=== PATIENT | male | born 1975 | race Caucasian/White ===

== ENCOUNTER 2016-11-15 22:19 | Emergency (ER) | payer BC, MEDICARE ==
[~2016-11-15 22:19] MED LIST: ATV1 PO; DIL2TAB PO; DURA75 TOP; HABIT21 TOP; NORCO1 TAB PO; PERCOCET 10/3251 TAB PO; PERCOCET 7.5/321 TAB PO; PR12.5 PO; ZOFRAN4 PO
[2016-11-16 01:30] LABS: PROTIME (NOT ORD) 13.4 SEC (12.0-14.5)
[2016-11-16 01:31] LABS: PARTIAL THROMBO TIME 31.2 SEC (22.5-37.2)
[2016-11-16 01:34] LABS: LACTATE 0.7 MMOL/L (0.3-2.4)
[2016-11-16 01:35] LABS: A/G RATIO 1.1 (0.7-1.9); ACETAMINOPHEN LEVEL (TYLENOL) < 2.0 MCG/ML (10.0-20.0); ALBUMIN 3.9 G/DL (3.5-5.0); ALCOHOL < 10 MG/DL (0); ALKALINE PHOSPHATASE 64 U/L (45-117); BASOPHILS 0.3 %; BASOPHILS ABSOLUTE 0.03 10/3/uL (0.0-0.16); BUN (BLOOD UREA NITROGEN) 15 MG/DL (6-23); CALCIUM, SERUM 8.5 MG/DL (8.5-10.4); CHLORIDE, SERUM 109 MMOL/L (96-112); CO2 (CARBON DIOXIDE) 25 MMOL/L (24-34); CREATININE 0.67 MG/DL (0.70-1.30); DIRECT BILIRUBIN < 0.1 MG/DL (0.0-0.4); EOSINOPHILS 3.9 %; EOSINOPHILS ABSOLUTE 0.41 10/3/uL (0.0-0.53); GFR AFRICAN AMERICAN 138 ML/MIN (>=60); GFR NON AFRICAN AMERICAN 119 ML/MIN (>=60); GLOBULIN 3.6 G/DL (2.5-4.1); GLUCOSE, SERUM 90 MG/DL (60-99); HEMOGLOBIN 14.2 g/dL (13.6-17.8); IMMATURE GRANULOCYTES 0.2 %; IMMATURE GRANULOCYTES ABSOLUTE 0.02 10/3/uL (0.0-0.11); INDIRECT BILIRUBIN(NOT ORDER) 0.1 MG/DL (0.1-0.9); LYMPHOCYTES 30.3 %; LYMPHOCYTES ABSOLUTE 3.17 10/3/uL (0.67-4.30); MEAN CORPUS HGB CONC 35.5 g/dL (32.0-36.0); MEAN CORPUSCULAR HEMOGLOB 31.9 pg (26.0-34.0); MEAN CORPUSCULAR VOLUME 89.9 fL (80-100); MEAN PLATELET VOLUME 10.2 fL (9.2-13.0); MONOCYTES 5.1 %; MONOCYTES ABSOLUTE 0.53 10/3/uL (0.21-1.20); NEUTROPHILS 60.2 %; NEUTROPHILS ABSOLUTE 6.31 10/3/uL (2.02-8.40); PLATELET COUNT 273 10/3/uL (150-400); POTASSIUM, SERUM 3.6 MMOL/L (3.5-5.3); RBC DISTRIBUTION WIDTH 13.3 % (12.0-16.0); RED CELL COUNT 4.45 10/6/uL (4.7-6.1); SALICYLATE 5.6 MG/DL (-); SGOT(AST) 12 U/L (5-40); SGPT(ALT) 18 U/L (5-65); SODIUM, SERUM 143 MMOL/L (135-148); TOTAL BILIRUBIN 0.2 MG/DL (0-1.2); TOTAL PROTEIN 7.5 G/DL (6.0-8.5); WHITE BLOOD CELLS 10.5 10/3/uL (4.5-10.5)
[2016-11-16 01:38] LABS: ER CBC TAT 0 Hrs 25 Mins; MANUAL DIFF NO %
[2016-11-16 01:57] LABS: PROCALCITONIN <0.05 ng/mL (<0.5)
== END 2016-11-16 02:47 | disposition home or self-care (01) ==
LOC: ER 22:19
PROVIDERS: Nurse Practitioner
DX: R10.30 Lower abdominal pain, unspecified (principal); F11.90 Opioid use, unspecified, uncomplicated; F17.200 Nicotine dependence, unspecified, uncomplicated; Z85.038 Personal history of other malignant neoplasm of large intestine; Z79.899 Other long term (current) drug therapy
CPT/HCPCS: 74176; 80053; 80305; 80307; 81001; 82248; 83605; 83690; 83735; 84145; 85025; 85610; 85730; 87040; 96374; 99284; A9270-GY; J1170; J1200; J2550